=== PATIENT | female | born 1995 | race African-American/Black ===

== ENCOUNTER 2023-02-22 19:06 | Emergency (ER) | payer OTHER ==
[2023-02-22 19:14] VITALS: BP 94/58; PULSE 81; RESP 16; TEMP 97.6; BMI 23.5
[2023-02-22] MEDS ORDERED: DEXAMETHASONE SOD PHOSPHATE 10 MG/1 ML VIAL IM ONE (22:41)
[2023-02-22] MEDS ORDERED: CYCLOBENZAPRINE HCL 5 MG TABLET PO STA (22:41)
[2023-02-22] MEDS ORDERED: KETOROLAC TROMETHAMINE 30 MG/1 ML VIAL IM ONE (22:41)
[2023-02-22] MEDS ORDERED: CYCLOBENZAPRINE HCL 10 MG TABLET (FP) ONE (22:54)
[2023-02-22] MEDS ORDERED: KETOROLAC TROMETHAMINE 30 MG/1 ML VIAL ONE (22:55)
[2023-02-22] MEDS ORDERED: DEXAMETHASONE SOD PHOSPHATE 10 MG/1 ML VIAL ONE (22:55)
== END 2023-02-23 00:34 | disposition home or self-care (01) ==
LOC: JERFT 19:06
PROC: 3E023GC Introduction of Other Therapeutic Substance into Muscle, Percutaneous Approach (ICD-10-PCS; principal; 2023-02-22)
PROC: 3E0233Z Introduction of Anti-inflammatory into Muscle, Percutaneous Approach (ICD-10-PCS; 2023-02-22)
DX: M54.9 Dorsalgia, unspecified (principal); M54.6 Pain in thoracic spine
CPT/HCPCS: 99284-25; J1100

== ENCOUNTER 2023-04-20 16:45 | Emergency (ER) | payer OTHER ==
[2023-04-20 16:54] VITALS: BP 105/69; PULSE 85; RESP 20; TEMP 98.2; BMI 24.2
[2023-04-20] MEDS ORDERED: ACETAMINOPHEN 500 MG TABLET (FP) PO ONE (17:49)
[2023-04-20] MEDS ORDERED: LIDOCAINE 5% TOPICAL PATCH TP ONE (17:50)
[2023-04-20] MEDS ORDERED: LIDOCAINE 5% TOPICAL PATCH ONE (18:18)
[2023-04-20] MEDS ORDERED: ACETAMINOPHEN 500 MG TABLET (FP) ONE (18:19)
[2023-04-20] MEDS ORDERED: DIPHTH,PERTUSS(ACELL),TET 0.5 ML DISP.SYRIN IM ONE ×2 (18:38→18:48)
[2023-04-20] MEDS ORDERED: BACITRACIN ZINC 15 GM TUBE TOPICAL OINTMENT ONE (20:51)
[2023-04-20] MEDS ORDERED: LIDOCAINE PATCH REMOVAL MC SCH (22:00)
== END 2023-04-20 21:54 | disposition home or self-care (01) ==
LOC: JER 16:45
PROC: 3E0234Z Introduction of Serum, Toxoid and Vaccine into Muscle, Percutaneous Approach (ICD-10-PCS; principal; 2023-04-20)
DX: S50.811A Abrasion of right forearm, initial encounter (principal); S50.812A Abrasion of left forearm, initial encounter; S80.211A Abrasion, right knee, initial encounter; S80.212A Abrasion, left knee, initial encounter; R51.9 Headache, unspecified; R42 Dizziness and giddiness; M54.50 Low back pain, unspecified; S00.01XA Abrasion of scalp, initial encounter; S30.810A Abrasion of lower back and pelvis, initial encounter; S50.312A Abrasion of left elbow, initial encounter; X99.8XXA Assault by other sharp object, initial encounter
CPT/HCPCS: 70450-TC; 72070-TC-FY; 72100-TC-FY; 72125-TC; 73030-TC-LT-FY; 84703; 90471; 90715; 99285-25